=== PATIENT | female | born 1985 | race Caucasian/White ===

== ENCOUNTER 2019-09-26 09:28 | Emergency (ER) | payer MEDICAID ==
[~2019-09-26] VITALS: Ht 165.1 cm; Wt 68.0 kg
[2019-09-26] MEDS ORDERED: IBUPROFEN 800MG TABLET PO ONE (09:45)
[2019-09-26] MEDS ORDERED: ACETAMINOPHEN WITH CODEINE 300/30MG TABLET PO ONE (09:45)
[2019-09-26 11:37] VITALS: BP 133/65
== END 2019-09-26 11:39 | disposition home or self-care (01) ==
LOC: ER 09:43
DX: M25.511 Pain in right shoulder (principal); R07.89 Other chest pain; M25.512 Pain in left shoulder; M54.89 Other dorsalgia; G89.11 Acute pain due to trauma; R03.0 Elevated blood-pressure reading, without diagnosis of hypertension; V49.49XA Driver injured in collision with other motor vehicles in traffic accident, initial encounter; Y93.89 Activity, other specified; Y92.488 Other paved roadways as the place of occurrence of the external cause
CPT/HCPCS: 71101; 73030; 81025; 99284